=== PATIENT | male | born 1935 | race Caucasian/White ===

== ENCOUNTER 2018-01-02 15:15 | Observation (INO) | payer OTHER ==
[~2018-01-02] VITALS: Ht 172.7 cm; Wt 67.1 kg
[2018-01-02 16:23] LABS: Basophils # (auto) 0 uL; Basophils % (auto) 0.5 % (0.0-2.0); Eosinophils # (auto) 0.3 uL; Eosinophils % (auto) 4.5 % (0.0-7.0); Hematocrit 40.3 % (41.0-53.0); Hemoglobin 13.7 g/dL (13.5-17.5); Lymphocytes # (auto) 1.4 uL; Mean Corpuscular Hemoglobin 33.3 pg (28.0-32.0); Mean Corpuscular Hgb Conc. 33.9 g/dL (32.0-36.0); Mean Corpuscular Volume 98.3 fL (80.0-100.0); Monocytes # (auto) 0.5 uL; Monocytes % (auto) 9.1 % (0.0-12.0); Neutrophils # (auto) 3.7 uL; Neutrophils % (auto) 61.9 % (37.0-80.0); Platelet Count (auto) 97 10^3/uL (140-450); Red Cell Distribution Width 14.2 % (11.8-14.3)
[2018-01-02 16:39] LABS: Urine Bacteria NONE SEEN /hpf (None Seen); Urine Blood 3+ /uL (Negative); Urine WBC 773 /hpf (0 - 3)
[2018-01-02 16:41] LABS: Urine Specific Gravity 1.012 (1.001-1.035)
[2018-01-02 16:44] LABS: INR 1.06 (0.9-1.15); Partial Thromboplastin Time 31.7 sec (23.78-33.04); Prothrombin Time 11.3 sec (9.27-12.13)
[2018-01-02 16:54] LABS: Albumin 3.8 g/dL (3.4-5.0); BUN/Creatinine Ratio 14.8; Bilirubin, Total 1.6 mg/dL (0.2-1.0); Potassium 3.6 mmol/L (3.5-5.1); Total Protein 7.2 g/dL (6.4-8.2)
[2018-01-02] MEDS ORDERED: SODIUM CHLORIDE 0.9% 1,000 ML IV ONE (18:00)
[2018-01-02] MEDS ORDERED: cefTRIAXone 1GM/10ml IVPUSH 10 ML IV ONE (18:00)
[2018-01-02 19:28] VITALS: BP 119/94
== END 2018-01-02 19:55 | disposition home or self-care (01) | DRG 696 ==
LOC: ER 15:26 → OVERFLOW 15:27 → ER 19:55
PROVIDERS: ADMIT Family Medicine; ATTEND Family Medicine
DX: R31.9 Hematuria, unspecified (principal); N41.0 Acute prostatitis; I11.0 Hypertensive heart disease with heart failure; I50.9 Heart failure, unspecified; I48.91 Unspecified atrial fibrillation; N40.0 Benign prostatic hyperplasia without lower urinary tract symptoms
CPT/HCPCS: 36415; 71045; 74176; 80053; 81001; 83735; 85025; 85610; 85730; 96374; 99285; G0378; J0696; J7030

== ENCOUNTER 2018-04-22 14:05 | Inpatient (IN) | payer OTHER | END 2018-04-23 20:41 | disposition home health service (06) | LOC: ER 14:05 → TELE 18:10 → TELE-WESTW 19:52 | DX: N28.1 Cyst of kidney, acquired (principal); I50.33 Acute on chronic diastolic (congestive) heart failure ==

== ENCOUNTER 2020-10-25 16:00 | Inpatient (IN) | payer MEDICARE, OTHER ==
[~2020-10-25] VITALS: Ht 170.2 cm; Wt 70.4 kg
[~2020-10-25 16:00] MED LIST: ALLO-52 PO; APIX5TAB PO; ASPI-543 PO; ATOR40TA52 PO; CAR125T PO; FURO20TA3 PO; LEVO25TA6 PO; LISI-716 PO; OMEP20TA PO; TERA1CAP33 PO; TERA2CAP45 PO
[2020-10-25] MEDS ORDERED: SODIUM CHLORIDE 0.9% 1,000 ML IV ONE ×2 (16:15→17:45)
[2020-10-25] MEDS ORDERED: NOREPINEPHRINE 8 MG/250ML KIT 250 ML IV ONE (16:26)
[2020-10-25 16:49] LABS: Eosinophils # (auto) 0 10 ^3/uL (0-0.8); Lymphocytes # (auto) 0.7 10 ^3/uL (0.4-5.4); Monocytes # (auto) 0.4 10 ^3/uL (0-1.3); Monocytes % (auto) 4.6 % (0.0-12.0)
[2020-10-25 16:51] LABS: Basophils # (auto) 0 10 ^3/uL (0-0.2); Basophils % (auto) 0.1 % (0.0-2.0); Hematocrit 35.4 % (41.0-53.0); Lymphocytes % (auto) 7.6 % (10.0-50.0); Mean Corpuscular Hemoglobin 34.6 pg (28.0-32.0); Neutrophils # (auto) 8.2 10 ^3/uL (1.6-8.6); Neutrophils % (auto) 87.7 % (37.0-80.0); Red Blood Cells 3.47 10^6/uL (4.5-5.90); Red Cell Distribution Width 14.2 % (11.8-14.3); White Blood Cell 9.3 10^3/uL (4.4-10.8)
[2020-10-25 17:09] LABS: Albumin 3.7 g/dL (3.4-5.0); Calcium 8.9 mg/dL (8.5-10.1); Chloride 111 mmol/L (98-107); Potassium 3.9 mmol/L (3.5-5.1); Sodium 145 mmol/L (136-145)
[2020-10-25 17:12] LABS: Alanine Aminotransferase 28 U/L (16-61); Anion Gap 16 (5-15); Aspartate Aminotransferase 20 U/L (15-37); BUN/Creatinine Ratio 14.1; Carbon Dioxide 18 mmol/L (21-32); GFR African American 8 mL/min; GFR Non-African American 7 mL/min; Glucose 135 mg/dL (74-106)
[2020-10-25 17:14] LABS: Alkaline Phosphatase 63 U/L (45-117); Total Protein 6.6 g/dL (6.4-8.2)
[2020-10-25 17:16] LABS: Blood Urea Nitrogen 112 mg/dL (7-18); INR 1.14 (0.9-1.15)
[2020-10-25 18:56] LABS: Magnesium 3.7 mg/dL (1.6-2.6); Phosphorus 6.4 mg/dL (2.5-4.90)
[2020-10-25] MEDS ORDERED: ACETAMINOPHEN 325 MG TAB PO PRN (22:15)
[2020-10-25] MEDS ORDERED: ONDANSETRON HCL 4 MG/2 ML VIAL IV PRN (22:15)
[2020-10-25] MEDS ORDERED: DOCUSATE SOD 100 MG CAP PO PRN (22:15)
[2020-10-25] MEDS ORDERED: MORPHINE SULFATE INJECTION 2 MG/ML SYRG IV PRN (22:15)
[2020-10-25] MEDS ORDERED: NITROGLYCERIN 0.4 MG SL TAB SL PRN (22:15)
[2020-10-26] VITALS (8 sets, daily range): BP systolic 83–104; BP diastolic 48–63
[2020-10-26] MEDS: SODIUM CHLOR 0.9% PF (SALINE LOCK) 10ML VIAL/SYR IV SCH ×3 (06:00→22:43)
[2020-10-26 06:54] LABS: Basophils # (auto) 0 10 ^3/uL (0-0.2); Eosinophils # (auto) 0 10 ^3/uL (0-0.8); Eosinophils % (auto) 0.3 % (0.0-7.0); Lymphocytes # (auto) 1.4 10 ^3/uL (0.4-5.4); Monocytes # (auto) 0.6 10 ^3/uL (0-1.3); Red Blood Cells 3.08 10^6/uL (4.5-5.90)
[2020-10-26 06:57] LABS: Basophils % (auto) 0.1 % (0.0-2.0); Hematocrit 30.9 % (41.0-53.0); Lymphocytes % (auto) 18.3 % (10.0-50.0); Mean Corpuscular Hemoglobin 35.7 pg (28.0-32.0); Mean Corpuscular Hgb Conc. 35.5 g/dL (32.0-36.0); Mean Corpuscular Volume 100.4 fL (80.0-100.0); Neutrophils # (auto) 5.8 10 ^3/uL (1.6-8.6); Neutrophils % (auto) 73.3 % (37.0-80.0); Red Cell Distribution Width 14.1 % (11.8-14.3); White Blood Cell 7.8 10^3/uL (4.4-10.8)
[2020-10-26 07:16] LABS: Bilirubin, Total 1.7 mg/dL (0.2-1.0); Phosphorus 4.9 mg/dL (2.5-4.90)
[2020-10-26 08:07] LABS: Albumin 3.3 g/dL (3.4-5.0); BUN/Creatinine Ratio 20.2; Calcium 8.4 mg/dL (8.5-10.1); Magnesium 3.4 mg/dL (1.6-2.6)
[2020-10-26] MEDS ORDERED: POTASSIUM EFFERVESENT TAB 25 MEQ PO ONE (08:30)
[2020-10-26 09:47] LABS: Potassium 2.9 mmol/L (3.5-5.1)
[2020-10-26] MEDS ORDERED: ZINC SULFATE 220mg CAP or TAB PO SCH (10:00)
[2020-10-26] MEDS ORDERED: ASCORBIC ACID 500 MG TAB PO SCH (10:00)
[2020-10-26] MEDS ORDERED: ASPirin 81 mg TAB PO SCH (10:00)
[2020-10-26] MEDS: HEPARIN SODIUM (PORCINE) 5000 UNITS/ML 1ML VIAL SC SCH ×2 (10:00→22:00)
[2020-10-26] MEDS ORDERED: CARVEDILOL 3.125 MG TAB PO SCH (10:00)
[2020-10-26] MEDS: MULTIPLE VITAMIN TAB PO SCH (10:15)
[2020-10-26] MEDS ORDERED: TRIA37.56 PO (11:39)
[2020-10-26] MEDS ORDERED: SODIUM CHLORIDE 0.9% 1,000 ML IV SCH (13:00)
[2020-10-26] MEDS ORDERED: POTASSIUM CHL 20 Meq TABLET PO ONE (13:00)
[2020-10-26] MEDS: SODIUM CHLORIDE 0.9% 1,000 ML IV SCH (15:26)
[2020-10-26 16:36] LABS: Urine Bacteria NONE SEEN /hpf (None Seen); Urine Blood Negative /uL (Negative); Urine Hyaline Cast FEW /lpf (0 - 2); Urine Specific Gravity 1.016 (1.001-1.035); Urine WBC <1 /hpf (0 - 3)
[2020-10-26] MEDS: ATORVASTATIN 20 MG TAB PO SCH (22:43)
[2020-10-27 05:00] VITALS: BP 92/60
[2020-10-27] MEDS: SODIUM CHLOR 0.9% PF (SALINE LOCK) 10ML VIAL/SYR IV SCH ×3 (06:02→22:35)
[2020-10-27] MEDS: SODIUM CHLORIDE 0.9% 1,000 ML IV SCH (06:23)
[2020-10-27 06:30] LABS: Basophils # (auto) 0 10 ^3/uL (0-0.2); Basophils % (auto) 0.3 % (0.0-2.0); Lymphocytes # (auto) 1.3 10 ^3/uL (0.4-5.4); Neutrophils # (auto) 3.4 10 ^3/uL (1.6-8.6)
[2020-10-27 06:33] LABS: Eosinophils # (auto) 0.1 10 ^3/uL (0-0.8); Hematocrit 31.6 % (41.0-53.0); Hemoglobin 11.2 g/dL (13.5-17.5); Lymphocytes % (auto) 24.5 % (10.0-50.0); Mean Corpuscular Hemoglobin 35.8 pg (28.0-32.0); Mean Corpuscular Hgb Conc. 35.5 g/dL (32.0-36.0); Mean Corpuscular Volume 100.8 fL (80.0-100.0); Monocytes # (auto) 0.4 10 ^3/uL (0-1.3); Monocytes % (auto) 8.3 % (0.0-12.0); Neutrophils % (auto) 65.9 % (37.0-80.0); Nucleated Red Blood Cells % 0.1 %; Red Blood Cells 3.13 10^6/uL (4.5-5.90); Red Cell Distribution Width 14.7 % (11.8-14.3); White Blood Cell 5.2 10^3/uL (4.4-10.8)
[2020-10-27 06:48] LABS: Calcium 8.5 mg/dL (8.5-10.1); Potassium 3.3 mmol/L (3.5-5.1)
[2020-10-27 08:55] VITALS: BP 91/46
[2020-10-27] MEDS: MULTIPLE VITAMIN TAB PO SCH (09:25)
[2020-10-27] MEDS ORDERED: POTASSIUM EFFERVESENT TAB 25 MEQ PO ONE (12:45)
[2020-10-27 12:57] VITALS: BP 107/54
[2020-10-27] MEDS: Ensure HIGH Protein Chocolate 8oz Bottle PO SCH ×2 (13:52→18:09)
[2020-10-27 17:00] VITALS: BP 102/72
[2020-10-27] MEDS: SODIUM BICARBONATE 50ML VIAL 50 ML in SOD CHL 0.45% 1,000 ML IV SCH ×2 (18:09→23:50)
[2020-10-27 20:00] VITALS: BP 112/65
[2020-10-27 22:00] VITALS: BP 112/65
[2020-10-27] MEDS: ATORVASTATIN 20 MG TAB PO SCH (22:35)
[2020-10-28 05:00] VITALS: BP 109/50
[2020-10-28 05:33] LABS: Basophils # (auto) 0 10 ^3/uL (0-0.2); Eosinophils # (auto) 0.1 10 ^3/uL (0-0.8); Lymphocytes # (auto) 1.2 10 ^3/uL (0.4-5.4); Monocytes # (auto) 0.4 10 ^3/uL (0-1.3); Monocytes % (auto) 7.2 % (0.0-12.0)
[2020-10-28 05:37] LABS: Basophils % (auto) 0.3 % (0.0-2.0); Eosinophils % (auto) 1.6 % (0.0-7.0); Hematocrit 32.2 % (41.0-53.0); Hemoglobin 11.6 g/dL (13.5-17.5); Lymphocytes % (auto) 22.7 % (10.0-50.0); Mean Corpuscular Hemoglobin 36.4 pg (28.0-32.0); Mean Corpuscular Hgb Conc. 35.8 g/dL (32.0-36.0); Mean Corpuscular Volume 101.7 fL (80.0-100.0); Neutrophils # (auto) 3.6 10 ^3/uL (1.6-8.6); Neutrophils % (auto) 68.2 % (37.0-80.0); Red Blood Cells 3.17 10^6/uL (4.5-5.90); Red Cell Distribution Width 14.1 % (11.8-14.3); White Blood Cell 5.2 10^3/uL (4.4-10.8)
[2020-10-28 05:58] LABS: Calcium 8.7 mg/dL (8.5-10.1); Potassium 4.2 mmol/L (3.5-5.1)
[2020-10-28 06:00] LABS: BUN/Creatinine Ratio 50.8
[2020-10-28] MEDS: SODIUM CHLOR 0.9% PF (SALINE LOCK) 10ML VIAL/SYR IV SCH ×3 (06:15→21:17)
[2020-10-28] MEDS: Ensure HIGH Protein Chocolate 8oz Bottle PO SCH ×3 (08:10→18:35)
[2020-10-28 09:00] VITALS: BP 113/65
[2020-10-28] MEDS: MULTIPLE VITAMIN TAB PO SCH (10:15)
[2020-10-28] MEDS: SODIUM BICARBONATE 50ML VIAL 50 ML in SOD CHL 0.45% 1,000 ML IV SCH (10:15)
[2020-10-28 13:00] VITALS: BP 108/70
[2020-10-28 17:00] VITALS: BP 111/77
[2020-10-28] MEDS ORDERED: SOD CHL 0.45% 1,000 ML IV SCH (18:15)
[2020-10-28] MEDS: ATORVASTATIN 20 MG TAB PO SCH (21:17)
[2020-10-28 22:00] VITALS: BP 106/65
[2020-10-29 05:00] VITALS: BP 125/73
[2020-10-29] MEDS: SODIUM CHLOR 0.9% PF (SALINE LOCK) 10ML VIAL/SYR IV SCH ×2 (05:54→16:09)
[2020-10-29 07:31] LABS: Anion Gap 6 (5-15); BUN/Creatinine Ratio 39.6; Blood Urea Nitrogen 36 mg/dL (7-18); Calcium 8.7 mg/dL (8.5-10.1); Carbon Dioxide 25 mmol/L (21-32); Chloride 110 mmol/L (98-107); GFR African American 101 mL/min; GFR Non-African American 84 mL/min; Glucose 94 mg/dL (74-106); Potassium 3.6 mmol/L (3.5-5.1); Sodium 141 mmol/L (136-145)
[2020-10-29] MEDS: Ensure HIGH Protein Chocolate 8oz Bottle PO SCH ×3 (07:58→19:02)
[2020-10-29 09:00] VITALS: BP 134/71
[2020-10-29] MEDS: MULTIPLE VITAMIN TAB PO SCH (09:28)
[2020-10-29] MEDS: HYDROcodone-ACET 5/325MG TAB PO PRN (09:28)
[2020-10-29 13:00] VITALS: BP 138/79
[2020-10-29 17:00] VITALS: BP 132/80
[2020-10-29 20:00] VITALS: BP 89/51
[2020-10-29] MEDS: ATORVASTATIN 20 MG TAB PO SCH (21:29)
[2020-10-29 22:00] VITALS: BP 151/94
[2020-10-30 05:00] VITALS: BP 152/78
[2020-10-30] MEDS: SODIUM CHLOR 0.9% PF (SALINE LOCK) 10ML VIAL/SYR IV SCH ×4 (06:46→21:12)
[2020-10-30 07:04] LABS: Calcium 9.2 mg/dL (8.5-10.1); Potassium 4.1 mmol/L (3.5-5.1)
[2020-10-30 07:07] LABS: BUN/Creatinine Ratio 34.1
[2020-10-30] MEDS: Ensure HIGH Protein Chocolate 8oz Bottle PO SCH ×3 (07:50→19:36)
[2020-10-30 09:00] VITALS: BP 143/78
[2020-10-30] MEDS: APIXABAN 5 MG TAB PO SCH ×2 (09:12→21:13)
[2020-10-30] MEDS: MULTIPLE VITAMIN TAB PO SCH (09:12)
[2020-10-30 13:00] VITALS: BP 149/87
[2020-10-30 17:00] VITALS: BP 132/76
[2020-10-30] MEDS: ATORVASTATIN 20 MG TAB PO SCH (21:13)
[2020-10-30] MEDS: HYDROcodone-ACET 5/325MG TAB PO PRN (21:13)
[2020-10-30 22:00] VITALS: BP 120/63
[2020-10-31 05:00] VITALS: BP 131/78
[2020-10-31] MEDS: SODIUM CHLOR 0.9% PF (SALINE LOCK) 10ML VIAL/SYR IV SCH ×2 (05:32→13:29)
[2020-10-31 06:35] LABS: Calcium 9.4 mg/dL (8.5-10.1); Potassium 3.9 mmol/L (3.5-5.1)
[2020-10-31 09:00] VITALS: BP 173/106
[2020-10-31] MEDS: Ensure HIGH Protein Chocolate 8oz Bottle PO SCH ×2 (09:16→12:00)
[2020-10-31] MEDS: MULTIPLE VITAMIN TAB PO SCH (09:16)
[2020-10-31] MEDS: HYDROcodone-ACET 5/325MG TAB PO PRN (09:16)
[2020-10-31] MEDS: APIXABAN 5 MG TAB PO SCH (09:16)
[2020-10-31 09:58] VITALS: BP 144/88
[2020-10-31] MEDS ORDERED: PHENAZOPYRIDINE HCL 100 MG TAB PO ONE (11:00)
[2020-10-31] MEDS ORDERED: TAMSULOSIN HYDROCHLORIDE 0.4 MG CAP PO ONE (11:00)
[2020-10-31] MEDS ORDERED: TAM04C PO (11:00)
[2020-10-31 13:00] VITALS: BP 131/83
[2020-10-31] MEDS ORDERED: PHENAZOPYRIDINE HCL 100 MG TAB PO SCH (22:00)
[2020-11-01] MEDS ORDERED: TAMSULOSIN HYDROCHLORIDE 0.4 MG CAP PO SCH (18:00)
== END 2020-10-31 15:30 | disposition left against medical advice (07) | DRG 280 ==
LOC: ER 16:00 → EDBD 16:00 → TELE 22:05 → TELE-EAST 23:50
PROVIDERS: ADMIT Nurse Practitioner Family; ATTEND Internal Medicine Pulmonary Disease
DX: I11.0 Hypertensive heart disease with heart failure (principal); N17.0 Acute kidney failure with tubular necrosis; I21.A1 Myocardial infarction type 2; E44.0 Moderate protein-calorie malnutrition; D68.59 Other primary thrombophilia; I50.43 Acute on chronic combined systolic (congestive) and diastolic (congestive) heart failure; I95.9 Hypotension, unspecified; D69.6 Thrombocytopenia, unspecified; Z95.0 Presence of cardiac pacemaker; E86.0 Dehydration; R73.9 Hyperglycemia, unspecified; E87.6 Hypokalemia; D64.9 Anemia, unspecified; I25.10 Atherosclerotic heart disease of native coronary artery without angina pectoris; Z20.822 Contact with and (suspected) exposure to COVID-19; I48.91 Unspecified atrial fibrillation; M10.9 Gout, unspecified; N40.0 Benign prostatic hyperplasia without lower urinary tract symptoms; Z68.24 Body mass index [BMI] 24.0-24.9, adult
CPT/HCPCS: 36415; 70450; 71045; 76775; 80048; 80053; 80061; 81001; 82570; 83036; 83605; 83735; 83880; 84100; 84156; 84300; 84484; 85025; 85610; 85730; 87040; 87426; 93005; 93306; 96360; 97110; 97163; 97530; 99291; G0378

== ENCOUNTER 2020-11-01 14:25 | Inpatient (IN) | payer MEDICARE ==
[~2020-11-01] VITALS: Ht 172.7 cm; Wt 70.0 kg
[~2020-11-01 14:25] MED LIST changes: +TAM04C PO; +TRIA37.56 PO
[2020-11-01] MEDS ORDERED: SODIUM CHLORIDE 0.9% 500 ML IVB ONE (14:45)
[2020-11-01 15:18] LABS: Eosinophils # (auto) 0.1 10 ^3/uL (0-0.8); Neutrophils # (auto) 4.6 10 ^3/uL (1.6-8.6)
[2020-11-01 15:19] LABS: Basophils # (auto) 0 10 ^3/uL (0-0.2); Basophils % (auto) 0.4 % (0.0-2.0); Eosinophils % (auto) 1.2 % (0.0-7.0); Hematocrit 30.1 % (41.0-53.0); Hemoglobin 10.7 g/dL (13.5-17.5); Lymphocytes # (auto) 0.9 10 ^3/uL (0.4-5.4); Lymphocytes % (auto) 14.2 % (10.0-50.0); Mean Corpuscular Hemoglobin 35.8 pg (28.0-32.0); Mean Corpuscular Hgb Conc. 35.4 g/dL (32.0-36.0); Mean Corpuscular Volume 101.2 fL (80.0-100.0); Monocytes # (auto) 0.5 10 ^3/uL (0-1.3); Monocytes % (auto) 7.8 % (0.0-12.0); Neutrophils % (auto) 76.4 % (37.0-80.0); Nucleated Red Blood Cells % 0.1 %; Red Blood Cells 2.98 10^6/uL (4.5-5.90); Red Cell Distribution Width 14.3 % (11.8-14.3)
[2020-11-01 15:40] LABS: Albumin 3.3 g/dL (3.4-5.0); Calcium 9.1 mg/dL (8.5-10.1); Magnesium 2.1 mg/dL (1.6-2.6); Potassium 3.8 mmol/L (3.5-5.1)
[2020-11-01 15:43] LABS: BUN/Creatinine Ratio 25.6; Bilirubin, Total 1.4 mg/dL (0.2-1.0); Total Protein 6.4 g/dL (6.4-8.2)
[2020-11-01] MEDS ORDERED: ACETAMINOPHEN 500 MG TAB PO PRN (18:45)
[2020-11-01] MEDS ORDERED: MORPHINE SULFATE INJECTION 2 MG/ML SYRG IV PRN (18:45)
[2020-11-01] MEDS ORDERED: ONDANSETRON HCL 4 MG/2 ML VIAL IV PRN (18:45)
[2020-11-01] MEDS ORDERED: traMADol HCL 50 MG TAB PO PRN (18:45)
[2020-11-01] MEDS ORDERED: NITROGLYCERIN 0.4 MG SL TAB SL PRN (18:45)
[2020-11-01] MEDS ORDERED: cefTRIAXone 1GM/50ML D5W 50 ML IV ONE (18:45)
[2020-11-01] MEDS: SODIUM CHLORIDE 0.9% 1,000 ML IV SCH (19:47)
[2020-11-01] MEDS: CARVEDILOL 12.5 MG TAB PO SCH (21:50)
[2020-11-01] MEDS: APIXABAN 5 MG TAB PO SCH (21:50)
[2020-11-01] MEDS: ATORVASTATIN 20 MG TAB PO SCH (21:50)
[2020-11-02 02:15] VITALS: BP 140/77
[2020-11-02 05:26] VITALS: BP 115/74
[2020-11-02] MEDS: LEVOTHYROXINE SODIUM 25 MCG TAB PO SCH (06:40)
[2020-11-02 07:27] LABS: Potassium 3.5 mmol/L (3.5-5.1)
[2020-11-02 07:36] LABS: BUN/Creatinine Ratio 30.3; Calcium 9.1 mg/dL (8.5-10.1); Total Protein 5.4 g/dL (6.4-8.2)
[2020-11-02] MEDS: SODIUM CHLORIDE 0.9% 1,000 ML IV SCH (08:05)
[2020-11-02 09:00] VITALS: BP 113/65
[2020-11-02] MEDS: cefTRIAXone 1GM/50ML D5W 50 ML IV SCH (09:00)
[2020-11-02] MEDS ORDERED: chlordiazePOXIDE HCL 25 MG CAP PO PRN (09:45)
[2020-11-02] MEDS ORDERED: LIDOCAINE 2% JELLY 11ml (GLYDO) UR ONE (10:00)
[2020-11-02] MEDS: FINASTERIDE 5 MG TAB PO SCH (10:24)
[2020-11-02] MEDS: CARVEDILOL 12.5 MG TAB PO SCH ×2 (10:24→21:30)
[2020-11-02] MEDS: APIXABAN 5 MG TAB PO SCH ×2 (10:24→21:30)
[2020-11-02] MEDS: ASPirin-EC 81 mg tab PO SCH (10:24)
[2020-11-02] MEDS: PANTOPRAZOLE 40 MG TAB PO SCH (10:25)
[2020-11-02] MEDS: ALLOPURINOL 300 MG TAB PO SCH (10:25)
[2020-11-02] MEDS: LISINOPRIL 10 MG TAB PO SCH (10:25)
[2020-11-02 12:11] LABS: Urine Bacteria NONE SEEN /hpf (None Seen); Urine Blood 2+ /uL (Negative); Urine Budding Yeast OCCASIONAL /hpf (None Seen); Urine Specific Gravity 1.016 (1.001-1.035); Urine WBC 5 /hpf (0 - 3)
[2020-11-02 13:00] VITALS: BP 111/69
[2020-11-02] MEDS: MORPHINE SULFATE INJECTION 2 MG/ML SYRG IV PRN (14:10)
[2020-11-02 17:15] VITALS: BP 120/75
[2020-11-02] MEDS ORDERED: TERAZOSIN HCL 1 MG CAP PO SCH (18:00)
[2020-11-02] MEDS: TAMSULOSIN HYDROCHLORIDE 0.4 MG CAP PO SCH (18:00)
[2020-11-02] MEDS: ATORVASTATIN 20 MG TAB PO SCH (21:30)
[2020-11-02 22:00] VITALS: BP 109/65
[2020-11-03] MEDS: SODIUM CHLORIDE 0.9% 1,000 ML IV SCH ×2 (03:20→10:45)
[2020-11-03 03:36] LABS: Basophils # (auto) 0 10 ^3/uL (0-0.2); Eosinophils # (auto) 0.1 10 ^3/uL (0-0.8); Hemoglobin 9.2 g/dL (13.5-17.5); Neutrophils # (auto) 2.4 10 ^3/uL (1.6-8.6); White Blood Cell 3.8 10^3/uL (4.4-10.8)
[2020-11-03 03:38] LABS: Basophils % (auto) 0.4 % (0.0-2.0); Eosinophils % (auto) 2.8 % (0.0-7.0); Hematocrit 26.4 % (41.0-53.0); Mean Corpuscular Hemoglobin 35.6 pg (28.0-32.0); Mean Corpuscular Volume 101.8 fL (80.0-100.0); Monocytes # (auto) 0.3 10 ^3/uL (0-1.3); Monocytes % (auto) 8.8 % (0.0-12.0); Red Cell Distribution Width 14.1 % (11.8-14.3)
[2020-11-03 03:56] LABS: Albumin 2.4 g/dL (3.4-5.0); Calcium 7.8 mg/dL (8.5-10.1); Potassium 3.5 mmol/L (3.5-5.1)
[2020-11-03 04:00] LABS: Bilirubin, Total 0.7 mg/dL (0.2-1.0)
[2020-11-03 05:00] VITALS: BP 92/48
[2020-11-03] MEDS: LEVOTHYROXINE SODIUM 25 MCG TAB PO SCH (06:22)
[2020-11-03] MEDS: MORPHINE SULFATE INJECTION 2 MG/ML SYRG IV PRN (08:00)
[2020-11-03 09:00] VITALS: BP 102/48
[2020-11-03] MEDS: cefTRIAXone 1GM/50ML D5W 50 ML IV SCH (09:19)
[2020-11-03] MEDS: PANTOPRAZOLE 40 MG TAB PO SCH (10:00)
[2020-11-03] MEDS: APIXABAN 5 MG TAB PO SCH ×2 (10:00→21:20)
[2020-11-03] MEDS: FINASTERIDE 5 MG TAB PO SCH (10:30)
[2020-11-03] MEDS: ALLOPURINOL 300 MG TAB PO SCH (10:30)
[2020-11-03] MEDS: CARVEDILOL 12.5 MG TAB PO SCH ×2 (10:30→21:19)
[2020-11-03] MEDS: LISINOPRIL 10 MG TAB PO SCH (10:30)
[2020-11-03] MEDS: ASPirin-EC 81 mg tab PO SCH (11:14)
[2020-11-03 12:51] VITALS: BP 117/69
[2020-11-03 17:00] VITALS: BP 115/67
[2020-11-03] MEDS: TAMSULOSIN HYDROCHLORIDE 0.4 MG CAP PO SCH (18:18)
[2020-11-03] MEDS: ATORVASTATIN 20 MG TAB PO SCH (21:20)
[2020-11-03 21:56] VITALS: BP 118/73
[2020-11-04] MEDS: SODIUM CHLORIDE 0.9% 1,000 ML IV SCH ×2 (03:53→13:25)
[2020-11-04 04:27] VITALS: BP 117/74
[2020-11-04] MEDS: LEVOTHYROXINE SODIUM 25 MCG TAB PO SCH (06:04)
[2020-11-04 06:32] LABS: Eosinophils # (auto) 0.1 10 ^3/uL (0-0.8); Neutrophils # (auto) 2.7 10 ^3/uL (1.6-8.6)
[2020-11-04 06:35] LABS: Basophils # (auto) 0 10 ^3/uL (0-0.2); Basophils % (auto) 0.5 % (0.0-2.0); Eosinophils % (auto) 2.1 % (0.0-7.0); Hematocrit 27.3 % (41.0-53.0); Hemoglobin 9.6 g/dL (13.5-17.5); Lymphocytes # (auto) 0.9 10 ^3/uL (0.4-5.4); Lymphocytes % (auto) 22.1 % (10.0-50.0); Mean Corpuscular Hemoglobin 35.7 pg (28.0-32.0); Mean Corpuscular Hgb Conc. 35.1 g/dL (32.0-36.0); Monocytes # (auto) 0.3 10 ^3/uL (0-1.3); Monocytes % (auto) 8.3 % (0.0-12.0); Nucleated Red Blood Cells % 0.2 %; Red Blood Cells 2.68 10^6/uL (4.5-5.90); Red Cell Distribution Width 14.2 % (11.8-14.3)
[2020-11-04 06:52] LABS: Potassium 3.8 mmol/L (3.5-5.1)
[2020-11-04 06:59] LABS: Albumin 2.5 g/dL (3.4-5.0); BUN/Creatinine Ratio 18.8; Bilirubin, Total 0.6 mg/dL (0.2-1.0); Calcium 8.1 mg/dL (8.5-10.1); Total Protein 5.2 g/dL (6.4-8.2)
[2020-11-04 08:30] VITALS: BP_SYST 117; BP_SYST 129; BP_DIAS 74; BP_DIAS 76
[2020-11-04] MEDS: cefTRIAXone 1GM/50ML D5W 50 ML IV SCH (09:00)
[2020-11-04] MEDS: PANTOPRAZOLE 40 MG TAB PO SCH (10:00)
[2020-11-04] MEDS: ASPirin-EC 81 mg tab PO SCH (10:00)
[2020-11-04] MEDS: CARVEDILOL 12.5 MG TAB PO SCH ×2 (10:00→22:55)
[2020-11-04] MEDS: LISINOPRIL 10 MG TAB PO SCH (10:00)
[2020-11-04] MEDS: ALLOPURINOL 300 MG TAB PO SCH (10:00)
[2020-11-04] MEDS: FINASTERIDE 5 MG TAB PO SCH (10:00)
[2020-11-04] MEDS: APIXABAN 5 MG TAB PO SCH ×2 (10:00→22:55)
[2020-11-04] MEDS: Ensure HIGH Protein Chocolate 8oz Bottle PO SCH ×2 (12:16→18:10)
[2020-11-04 12:43] VITALS: BP 105/70
[2020-11-04 16:53] VITALS: BP 118/76
[2020-11-04] MEDS: TAMSULOSIN HYDROCHLORIDE 0.4 MG CAP PO SCH (18:10)
[2020-11-04 20:00] VITALS: BP 117/64
[2020-11-04] MEDS: ATORVASTATIN 20 MG TAB PO SCH (22:56)
[2020-11-05 05:00] VITALS: BP 131/70
[2020-11-05] MEDS: LEVOTHYROXINE SODIUM 25 MCG TAB PO SCH (06:39)
[2020-11-05 07:18] LABS: Basophils # (auto) 0 10 ^3/uL (0-0.2); Basophils % (auto) 0.3 % (0.0-2.0); Eosinophils # (auto) 0.1 10 ^3/uL (0-0.8); Hemoglobin 9.2 g/dL (13.5-17.5); Lymphocytes # (auto) 0.9 10 ^3/uL (0.4-5.4); Monocytes # (auto) 0.3 10 ^3/uL (0-1.3); Neutrophils # (auto) 2.6 10 ^3/uL (1.6-8.6); White Blood Cell 3.9 10^3/uL (4.4-10.8)
[2020-11-05 07:23] LABS: Hematocrit 25.7 % (41.0-53.0); Lymphocytes % (auto) 22.3 % (10.0-50.0); Mean Corpuscular Hemoglobin 36.1 pg (28.0-32.0); Mean Corpuscular Hgb Conc. 35.7 g/dL (32.0-36.0); Mean Corpuscular Volume 101.1 fL (80.0-100.0); Monocytes % (auto) 8.1 % (0.0-12.0); Neutrophils % (auto) 67.3 % (37.0-80.0); Red Blood Cells 2.55 10^6/uL (4.5-5.90); Red Cell Distribution Width 14.1 % (11.8-14.3)
[2020-11-05 07:39] LABS: Calcium 8.3 mg/dL (8.5-10.1); Potassium 3.7 mmol/L (3.5-5.1)
[2020-11-05 07:41] LABS: BUN/Creatinine Ratio 18.5
[2020-11-05 08:00] VITALS: BP 117/64
[2020-11-05] MEDS: Ensure HIGH Protein Chocolate 8oz Bottle PO SCH ×2 (08:00→12:00)
[2020-11-05 08:57] VITALS: BP 134/75
[2020-11-05] MEDS: cefTRIAXone 1GM/50ML D5W 50 ML IV SCH (09:29)
[2020-11-05] MEDS: ASPirin-EC 81 mg tab PO SCH (09:29)
[2020-11-05] MEDS: CARVEDILOL 12.5 MG TAB PO SCH (09:29)
[2020-11-05] MEDS: APIXABAN 5 MG TAB PO SCH (09:29)
[2020-11-05] MEDS: ALLOPURINOL 300 MG TAB PO SCH (09:30)
[2020-11-05] MEDS: LISINOPRIL 10 MG TAB PO SCH (09:30)
[2020-11-05] MEDS: FINASTERIDE 5 MG TAB PO SCH (09:30)
[2020-11-05] MEDS: PANTOPRAZOLE 40 MG TAB PO SCH (09:30)
[2020-11-05 12:30] VITALS: BP 127/76
== END 2020-11-05 16:25 | disposition home or self-care (01) | DRG 726 ==
LOC: ER 14:25 → EDBD 14:25 → TELE 18:40 → TELE-CENTR 20:44
PROVIDERS: ADMIT Internal Medicine; ATTEND Internal Medicine Pulmonary Disease
DX: N40.1 Benign prostatic hyperplasia with lower urinary tract symptoms (principal); N13.8 Other obstructive and reflux uropathy; N13.6 Pyonephrosis; E44.0 Moderate protein-calorie malnutrition; N32.0 Bladder-neck obstruction; D69.6 Thrombocytopenia, unspecified; Z20.822 Contact with and (suspected) exposure to COVID-19; I25.10 Atherosclerotic heart disease of native coronary artery without angina pectoris; F10.10 Alcohol abuse, uncomplicated; Y90.9 Presence of alcohol in blood, level not specified; M10.9 Gout, unspecified; E78.5 Hyperlipidemia, unspecified; I50.9 Heart failure, unspecified; I95.9 Hypotension, unspecified; D63.8 Anemia in other chronic diseases classified elsewhere; E03.9 Hypothyroidism, unspecified; I11.0 Hypertensive heart disease with heart failure; I25.2 Old myocardial infarction; Z79.01 Long term (current) use of anticoagulants; Z79.899 Other long term (current) drug therapy; Z82.49 Family history of ischemic heart disease and other diseases of the circulatory system; Z87.891 Personal history of nicotine dependence; Z68.23 Body mass index [BMI] 23.0-23.9, adult
CPT/HCPCS: 36415; 71045; 74176; 76775; 80048; 80053; 81001; 83690; 83735; 84154; 84550; 85025; 87081; 87086; 87426; 96361; 96365; G0378; J0696

== ENCOUNTER 2020-11-22 14:27 | Emergency (ER) | payer MEDICARE ==
[~2020-11-22] VITALS: Ht 182.9 cm; Wt 86.2 kg
[2020-11-22 15:22] VITALS: BP 95/64
[2020-11-22] MEDS ORDERED: cefTRIAXone 1GM/50ML D5W 50 ML IV ONE (16:45)
== END 2020-11-22 17:40 | disposition home or self-care (01) ==
LOC: EDBD 14:27 → ER 14:27
DX: Z46.6 Encounter for fitting and adjustment of urinary device (principal); N39.0 Urinary tract infection, site not specified; I10 Essential (primary) hypertension; I25.10 Atherosclerotic heart disease of native coronary artery without angina pectoris; E78.5 Hyperlipidemia, unspecified; Z95.0 Presence of cardiac pacemaker; Z90.89 Acquired absence of other organs; Z87.891 Personal history of nicotine dependence; Z79.82 Long term (current) use of aspirin; Z79.899 Other long term (current) drug therapy
CPT/HCPCS: 51702; 81002; 96365; 99284; J0696

== ENCOUNTER 2021-07-01 10:42 | Emergency (ER) | payer MEDICARE, OTHER ==
[~2021-07-01] VITALS: Ht 170.2 cm; Wt 63.5 kg
[2021-07-01 11:03] VITALS: BP 142/71
== END 2021-07-01 13:10 | disposition left against medical advice (07) ==
LOC: ER 10:42
DX: Z76.0 Encounter for issue of repeat prescription (principal); Z53.21 Procedure and treatment not carried out due to patient leaving prior to being seen by health care provider

== ENCOUNTER 2021-12-19 16:59 | Emergency (ER) | payer OTHER ==
[2021-12-27] MEDS ORDERED: AMOX-277 PO (10:22)
== END 2021-12-20 11:38 | disposition home or self-care (01) ==
LOC: ER 16:59
DX: Z46.6 Encounter for fitting and adjustment of urinary device (principal); I10 Essential (primary) hypertension; E78.5 Hyperlipidemia, unspecified; Z86.73 Personal history of transient ischemic attack (TIA), and cerebral infarction without residual deficits; Z90.89 Acquired absence of other organs; Z95.0 Presence of cardiac pacemaker
CPT/HCPCS: 51702; 93005

== ENCOUNTER 2022-03-20 23:23 | Emergency (ER) | payer OTHER, MEDICAID ==
[~2022-03-20] VITALS: Ht 165.1 cm; Wt 75.0 kg
[~2022-03-20 23:23] MED LIST changes: +AMOX-277 PO
[2022-03-21 01:23] LABS: Basophils # (auto) 0 10 ^3/uL (0-0.2); Basophils % (auto) 0.7 % (0.0-2.0); Eosinophils # (auto) 0.1 10 ^3/uL (0-0.8); Eosinophils % (auto) 1.1 % (0.0-7.0); Hematocrit 36.1 % (41.0-53.0); Hemoglobin 11.8 g/dL (13.5-17.5); Lymphocytes % (auto) 17.5 % (10.0-50.0); Mean Corpuscular Hemoglobin 33.1 pg (28.0-32.0); Mean Corpuscular Hgb Conc. 32.7 g/dL (32.0-36.0); Mean Corpuscular Volume 101.2 fL (80.0-100.0); Monocytes # (auto) 0.3 10 ^3/uL (0-1.3); Monocytes % (auto) 4.5 % (0.0-12.0); Neutrophils # (auto) 4.6 10 ^3/uL (1.6-8.6); Neutrophils % (auto) 76.2 % (37.0-80.0); Nucleated Red Blood Cells % 0.1 %; Red Blood Cells 3.57 10^6/uL (4.5-5.90); Red Cell Distribution Width 14.8 % (11.8-14.3)
[2022-03-21 01:39] LABS: Albumin 3.7 g/dL (3.4-5.0); Potassium 4.6 mmol/L (3.5-5.1)
[2022-03-21 01:40] LABS: INR 1.08 (0.9-1.15); Partial Thromboplastin Time 29.1 sec (24.6-33.4)
[2022-03-21 01:41] LABS: Bilirubin, Total 0.9 mg/dL (0.2-1.0); Total Protein 6.6 g/dL (6.4-8.2)
[2022-03-21] MEDS ORDERED: ONDANSETRON HCL 4 MG/2 ML VIAL IV ONE (01:45)
[2022-03-21] MEDS ORDERED: MORPHINE SULFATE 4 MG/ML SYR/VIAL IV ONE (01:45)
[2022-03-21] MEDS ORDERED: IOHEXOL 300 MG/ML 100ML BOTTLE IJ ONE (02:43)
[2022-03-21 14:00] VITALS: BP 105/63
== END 2022-03-21 15:23 | disposition home or self-care (01) ==
LOC: ER 23:23 → EDUNIT# 23:23 → EDBD 23:23 → ER 03-21 15:23
DX: U07.1 COVID-19 (principal); R07.89 Other chest pain; M54.9 Dorsalgia, unspecified; I10 Essential (primary) hypertension; E78.5 Hyperlipidemia, unspecified; I25.10 Atherosclerotic heart disease of native coronary artery without angina pectoris; Z90.89 Acquired absence of other organs; Z95.0 Presence of cardiac pacemaker; Z87.891 Personal history of nicotine dependence; Z79.82 Long term (current) use of aspirin; Z79.2 Long term (current) use of antibiotics; Z79.899 Other long term (current) drug therapy
CPT/HCPCS: 36415; 71045; 74177; 80053; 83880; 84484; 85025; 85610; 85730; 87426; 87804; 93005; 96374; 96375; 99285; J2270; J2405; Q9967

== ENCOUNTER 2022-09-30 13:10 | Emergency (ER) | payer OTHER, MEDICAID ==
[~2022-09-30] VITALS: Ht 172.7 cm; Wt 77.2 kg
[2022-09-30 13:10] VITALS: BP 137/85
[~2022-09-30 13:10] MED LIST changes: -AMOX-277 PO; +AMOX875T4 PO; -LISI-716 PO; +LISI10TA34 PO; -TAM04C PO; +TAMS-35 PO; -TRIA37.56 PO; +TRIA37.587 PO
[2022-09-30 14:55] LABS: Basophils # (auto) 0 10 ^3/uL (0-0.2); Basophils % (auto) 0.3 % (0.0-2.0); Eosinophils # (auto) 0 10 ^3/uL (0-0.8); Eosinophils % (auto) 0.2 % (0.0-7.0); Hematocrit 39.9 % (41.0-53.0); Hemoglobin 13.6 g/dL (13.5-17.5); Lymphocytes # (auto) 1.5 10 ^3/uL (0.4-5.4); Lymphocytes % (auto) 21.8 % (10.0-50.0); Mean Corpuscular Hemoglobin 33.7 pg (28.0-32.0); Mean Corpuscular Volume 99.1 fL (80.0-100.0); Monocytes # (auto) 0.4 10 ^3/uL (0-1.3); Monocytes % (auto) 5.2 % (0.0-12.0); Neutrophils % (auto) 72.5 % (37.0-80.0); Nucleated Red Blood Cells % 0.1 %; Red Blood Cells 4.03 10^6/uL (4.5-5.90); Red Cell Distribution Width 14.1 % (11.8-14.3)
[2022-09-30 15:28] LABS: Calcium 9.6 mg/dL (8.5-10.1); Potassium 3.8 mmol/L (3.5-5.1)
[2022-09-30 15:33] LABS: BUN/Creatinine Ratio 23.6 (10.0-20.0); Bilirubin, Total 1.4 mg/dL (0.2-1.0); Total Protein 7.3 g/dL (6.4-8.2)
[2022-09-30] MEDS ORDERED: cefTRIAXone SOD 1,000 MG VL IM ONE (16:45)
[2022-09-30] MEDS ORDERED: HYDROcodone-ACET 10/325MG TAB PO ONE (16:45)
== END 2022-09-30 19:29 | disposition home or self-care (01) ==
LOC: EDBD 13:10 → ER 13:10
DX: Z46.6 Encounter for fitting and adjustment of urinary device (principal); M54.9 Dorsalgia, unspecified; R10.2 Pelvic and perineal pain; I25.10 Atherosclerotic heart disease of native coronary artery without angina pectoris; E78.5 Hyperlipidemia, unspecified; I10 Essential (primary) hypertension; Z87.891 Personal history of nicotine dependence; Z95.0 Presence of cardiac pacemaker
CPT/HCPCS: 36415; 80053; 84484; 85025

== ENCOUNTER 2022-10-14 17:57 | Emergency (ER) | payer OTHER, MEDICAID ==
[~2022-10-14] VITALS: Ht 165.1 cm; Wt 65.9 kg
[2022-10-14 20:04] LABS: Basophils # (auto) 0 10 ^3/uL (0-0.2); Basophils % (auto) 0.5 % (0.0-2.0); Eosinophils # (auto) 0 10 ^3/uL (0-0.8); Eosinophils % (auto) 0.5 % (0.0-7.0); Hemoglobin 12.4 g/dL (13.5-17.5); Lymphocytes # (auto) 1.9 10 ^3/uL (0.4-5.4); Lymphocytes % (auto) 25.7 % (10.0-50.0); Mean Corpuscular Hemoglobin 33.5 pg (28.0-32.0); Mean Corpuscular Hgb Conc. 33.5 g/dL (32.0-36.0); Mean Corpuscular Volume 100.1 fL (80.0-100.0); Monocytes # (auto) 0.6 10 ^3/uL (0-1.3); Monocytes % (auto) 7.7 % (0.0-12.0); Neutrophils # (auto) 4.9 10 ^3/uL (1.6-8.6); Neutrophils % (auto) 65.6 % (37.0-80.0); Red Blood Cells 3.69 10^6/uL (4.5-5.90); Red Cell Distribution Width 14.1 % (11.8-14.3); White Blood Cell 7.5 10^3/uL (4.4-10.8)
[2022-10-14 20:22] LABS: Albumin 3.9 g/dL (3.4-5.0); Calcium 9.7 mg/dL (8.5-10.1); Potassium 3.9 mmol/L (3.5-5.1)
[2022-10-14 20:25] LABS: BUN/Creatinine Ratio 12.2 (10.0-20.0); Bilirubin, Total 1.6 mg/dL (0.2-1.0); Total Protein 7.1 g/dL (6.4-8.2)
[2022-10-14] MEDS ORDERED: cefTRIAXone SOD 1,000 MG VL IM ONE (22:15)
[2022-10-14] MEDS ORDERED: BACDST PO (22:16)
[2022-10-14 22:30] VITALS: BP 117/63
== END 2022-10-14 22:57 | disposition home or self-care (01) ==
LOC: EDUNIT# 17:57 → EDBD 17:57 → ER 17:57
DX: N39.0 Urinary tract infection, site not specified (principal); M25.551 Pain in right hip; R07.9 Chest pain, unspecified; E78.5 Hyperlipidemia, unspecified; I10 Essential (primary) hypertension; R51.9 Headache, unspecified; Z87.891 Personal history of nicotine dependence; W18.09XA Striking against other object with subsequent fall, initial encounter; Y93.89 Activity, other specified; Y92.89 Other specified places as the place of occurrence of the external cause; Y99.8 Other external cause status
CPT/HCPCS: 36415; 70450; 71250; 73700; 80053; 85025; 96372; 99285; J0696; 93005